=== PATIENT | male | born 1990 | race Caucasian/White ===

== ENCOUNTER 2024-04-21 23:25 | Emergency (ER) | payer MEDICAID ==
[~2024-04-21] VITALS: Ht 175.3 cm; Wt 91.0 kg
[2024-04-21 23:34] VITALS: O2SAT 100
[2024-04-22 00:29] LABS: BASOPHILS % 1.3 % (0.0-2.0); HEMATOCRIT. 41.8 % (42.0-52.0); HEMOGLOBIN. 14.9 g/dL (14.0-18.0); LYMPHOCYTES % 21.4 % (20.0-50.0); MEAN CORPUSCULAR HEMOGLOBIN 31.7 pg (28.0-32.0); MEAN CORPUSCULAR HGB CONC 35.7 g/dL (31.0-37.0); MEAN CORPUSCULAR VOLUME 88.9 fL (80.0-94.0); MEAN PLATELET VOLUME 7.7 fl (7.4-10.4); MONOCYTES % 6.3 % (2.0-8.0); PLATELET 271 x1000/uL (130-400); RED CELL DISTRIBUTION WIDTH 12.7 % (11.6-14.6); WHITE BLOOD COUNT 6.1 x1000/uL (4.5-11.0)
[2024-04-22 00:40] LABS: CHLORIDE 107 mEq/L (98-107); POTASSIUM 3.9 mEq/L (3.5-5.1); SODIUM 139 mEq/L (136-145)
[2024-04-22 00:41] LABS: CARBON DIOXIDE 25 mEq/L (21-32)
[2024-04-22 00:42] LABS: CALCIUM 9.3 mg/dL (8.7-10.4)
[2024-04-22 00:46] LABS: CREATININE 0.7 mg/dL (0.6-1.3); GLUCOSE 129 mg/dL (70-105)
[2024-04-22 00:47] LABS: UREA NITROGEN BLOOD 11 mg/dL (9-23)
[2024-04-22 00:58] LABS: TROPONIN I HIGH SENSITIVITY < 4 ng/L (3.0-53)
[2024-04-22 02:30] VITALS: BP 134/76; PULSE 82; RESP 18; TEMP 37.00296; O2SAT 100
[2024-04-22] MEDS: ONDANSETRON HCL 4MG TABLET PO ONE (02:58)
== END 2024-04-22 02:30 | disposition home or self-care (01) ==
LOC: ER 23:25
DX: B34.9 Viral infection, unspecified (principal); Z88.0 Allergy status to penicillin; Z88.1 Allergy status to other antibiotic agents; Z88.2 Allergy status to sulfonamides; Z98.890 Other specified postprocedural states
CPT/HCPCS: 80048; 85025; 84484; 36415; 71045; 93005; 99285; Q0162; Z7610

== ENCOUNTER 2024-05-08 20:40 | Emergency (ER) | payer MEDICAID ==
[~2024-05-08] VITALS: Ht 170.2 cm; Wt 91.0 kg
[2024-05-08 20:56] VITALS: TEMP 98.5; O2SAT 97
[2024-05-08 22:13] LABS: CLARITY URINE CLEAR (CLEAR); COLOR URINE DARK YELLOW (YELLOW); GLUCOSE URINE NEGATIVE (NEGATIVE); KETONES URINE 1+ (NEGATIVE); LEUKOCYTE ESTERASE URINE NEGATIVE (NEGATIVE); NITRITE URINE NEGATIVE (NEGATIVE); OCCULT BLOOD URINE 2+ (NEGATIVE); PH URINE 5.5 (4.5-8.0); PROTEIN URINE 3+ (NEGATIVE); SPECIFIC GRAVITY URINE 1.023 (1.005-1.030)
[2024-05-08 22:14] LABS: *AMPHETAMINES SCREEN URINE NEGATIVE (NEGATIVE); *BARBITURATES SCREEN URINE NEGATIVE (NEGATIVE); *BENZODIAZEPINES SCREEN URINE NEGATIVE (NEGATIVE); *COCAINE SCREEN URINE NEGATIVE (NEGATIVE); CANNABINOID URINE SCREEN NEGATIVE (NEGATIVE); ECSTASY MDMA SCREEN URINE NEGATIVE (NEGATIVE); METHADONE URINE SCREEN NEGATIVE (NEGATIVE); OPIATES URINE SCREEN NEGATIVE (NEGATIVE); PHENCYCLIDINE URINE SCREEN NEGATIVE (NEGATIVE)
[2024-05-08] MEDS: ONDANSETRON HCL 4MG/2ML INJ IV STA (22:17)
[2024-05-08] MEDS: SODIUM CHLORIDE 0.9% 1,000 ML IV ONE (22:17)
[2024-05-08 22:22] LABS: BASOPHILS % 0.7 % (0.0-2.0); EOSINOPHILS % 0.6 % (0.0-5.0); HEMATOCRIT. 45.6 % (42.0-52.0); HEMOGLOBIN. 16.3 g/dL (14.0-18.0); LYMPHOCYTES % 21.3 % (20.0-50.0); MEAN CORPUSCULAR HEMOGLOBIN 32.3 pg (28.0-32.0); MEAN CORPUSCULAR HGB CONC 35.9 g/dL (31.0-37.0); MONOCYTES % 5.2 % (2.0-8.0); NEUTROPHILS % 72.2 % (40.0-76.0); RED BLOOD CELL COUNT 5.06 mill/uL (4.7-6.1); RED CELL DISTRIBUTION WIDTH 13.8 % (11.6-14.6); WHITE BLOOD COUNT 6.7 x1000/uL (4.5-11.0)
[2024-05-08 22:26] LABS: DIFFERENTIAL COMMENT 1
[2024-05-08 22:30] LABS: INR 2.5; PROTHROMBIN TIME 25.7 sec (9.6-11.0)
[2024-05-08 22:31] LABS: SQUAMOUS EPITHELIAL CELL URINE RARE /lpf (RARE/1+); WBC URINE 0-2 /hpf (0-2)
[2024-05-08 22:32] LABS: BACTERIA URINE 2+
[2024-05-08 22:34] LABS: CHLORIDE 107 mEq/L (98-107); SODIUM 141 mEq/L (136-145)
[2024-05-08 22:35] LABS: CALCIUM 9.8 mg/dL (8.7-10.4); CARBON DIOXIDE 26 mEq/L (21-32)
[2024-05-08 22:36] LABS: MEAN PLATELET VOLUME 7.1 fl (7.4-10.4); PLATELET 229 x1000/uL (130-400)
[2024-05-08 22:40] LABS: CREATININE 0.7 mg/dL (0.6-1.3); GLUCOSE 89 mg/dL (70-105); UREA NITROGEN BLOOD 8 mg/dL (9-23)
[2024-05-08 22:42] LABS: ALANINE AMINOTRANSFERASE 53 IU/L (10-49); ALBUMIN 4.8 g/dL (3.2-4.8); ASPARTATE AMINOTRANSFERASE 54 IU/L (<34); BILIRUBIN DIRECT 0.6 mg/dL (<=3.0); ETHANOL BLOOD < 10 mg/dL (<10); PROTEIN TOTAL 8.2 g/dL (6.0-8.3); TROPONIN I HIGH SENSITIVITY < 4 ng/L (3.0-53)
[2024-05-09 01:34] VITALS: BP 167/83; PULSE 75; RESP 16; O2SAT 99
[2024-05-11 04:08] LABS: CHLAMYDIA TRACHOMATIS NAA Negative (Negative); NEISSERIA GONORRHOEAE NAA Negative (Negative)
== END 2024-05-09 01:38 | disposition home or self-care (01) ==
LOC: ER 20:40
DX: R53.1 Weakness (principal); Z88.0 Allergy status to penicillin; Z88.1 Allergy status to other antibiotic agents; Z88.2 Allergy status to sulfonamides; Z90.49 Acquired absence of other specified parts of digestive tract; Z98.890 Other specified postprocedural states
CPT/HCPCS: 87491; 87591; 80076; 80305; 80048; 81003; 80320; 83880; 83690; 85025; 85610; 86850; 86900; 86901; 86592; 84484; 36415; 71045; 93005; 96361; 96374; 99285; J2405; J7030; G0480